=== PATIENT | female | born 1980 | race Caucasian/White ===

== ENCOUNTER 2020-06-08 10:43 | Outpatient (REF) | payer BC, SELFPAY ==
[2020-06-08 12:46] LABS: MANUAL DIFF FLAG NO
[2020-06-08 13:03] LABS: Basophils Percent Auto 0.5 % (0-2); Eosinophils Absolute Auto 0.1 X10*3/uL (0.0-0.4); Eosinophils Percent Auto 1.7 % (0-4); Hemoglobin 13.9 g/dl (12.0-16.0); Imm Gran Abs Auto 0.02 X10*3/uL (0.00-0.03); Imm Gran Pct Auto 0.3 % (0.0-0.4); Lymphocytes Absolute Auto 1.6 X10*3/uL (1.2-4.9); Lymphocytes Percent Auto 24.3 % (20-40); Mean Corpuscular HGB Conc 33.1 g/dl (31.0-35.0); Mean Corpuscular Hemoglobin 29.2 pg (27.0-33.0); Mean Corpuscular Volume 88.2 fL (80-98); Mean Platelet Volume 12.3 fL (9.4-12.3); Monocytes Absolute Auto 0.5 X10*3/uL (0.1-1.2); Monocytes Percent Auto 7.6 % (2-11); Neutrophils Absolute Auto 4.2 X10*3/uL (2.0-8.3); Neutrophils Percent Auto 65.6 % (45-73); Platelet Count 196 X10*3/uL (160-400); Red Blood Count 4.76 X10*6/uL (4.20-5.50); Red Cell Distribution Width 12.1 % (11.0-16.0); White Blood Count 6.4 X10*3/uL (4.8-10.8)
[2020-06-08 13:31] LABS: Alanine Aminotransferase 15 U/L (0-31); Albumin Level 4.4 g/dL (3.5-5.0); Alkaline Phosphatase 54 U/L (39-117); Anion Gap 13 (12-20); Aspartate Amino Transferase 17 U/L (5-31); Bilirubin Total 1.9 mg/dL (0.0-1.0); Blood Urea Nitrogen 11 mg/dL (9-16); Calcium 9.2 mg/dL (8.4-10.2); Carbon Dioxide 27 mmol/L (22-29); Chloride 102 mmol/L (96-108); Cholesterol 190 mg/dL; Estimated Glomerular Filt Rate > 60; Glucose Fasting 78 mg/dL (60-99); HDL Cholesterol 55 mg/dL; LDL Cholesterol Calculated 114 mg/dl; Potassium 4.5 mmol/L (3.3-5.1); Sodium 137 mmol/L (135-145); Total Protein 7.5 g/dL (6.5-8.0); Triglycerides 108 mg/dL
== END 2020-06-08 10:44 | disposition home or self-care (01) ==
LOC: HO.MANLDS 10:43
PROVIDERS: PCP Internal Medicine; Visit Provider Physician Assistant
DX: Z00.00 Encounter for general adult medical examination without abnormal findings (principal); Z13.6 Encounter for screening for cardiovascular disorders
CPT/HCPCS: 36415; 80053; 80061; 85025

== ENCOUNTER 2024-06-27 14:39 | Outpatient (REF) | payer BC, SELFPAY ==
--- OUTSIDE RECORDS SUMMARY | 2024-06-27 17:31 | XMS_ITS | Data Portability ---
Author Organization [facility] Home Service Address [address] [place] [address] Assessment No assessment recorded. Plan of Treatment Reminders Order Date Submit Date Provider Last Modified By Organization Details Last Modified Time Details Appointments FOLLOW UP 15 2024 02:15P HANNAH FLOWERS Not available Not available Not available ANNUAL EXAM 2024 10:00A HANNAH FLOWERS Not available Not available Not available Lab hemoglobi n A1c, QN, blood 2024 025 [facility], [address] [place] [address], [id number], 06/27/2024 14:38:09 CMP, serum or plasma 2024 025 [facility], [address] [place] [address], [id number], 06/27/2024 14:38:09 TSH + free T4, serum 2024 025 [facility], [address] [place] [address], [id number], 06/27/2024 14:34:01 lipid panel, blood 2024 025 [facility], [address] [place] [address], [id number], 06/27/2024 14:33:37 CBC w/ auto diff 2024 025 [facility], [address] [place] [address], [place], [address], 06/27/2024 14:33:37 lipid panel, blood 2020 021 [facility], [address] [place] [address], [address], [place], [address], 06/11/2020 11:32:44 CMP, serum or plasma 2020 021 [facility], [address] [place] [address], [address], [place], [address], 06/11/2020 11:32:44 CBC w/ auto diff 2020 021 [facility], [address] [place] [address], [address], [place], [address], 06/11/2020 11:32:44 vitamin D, 25-hydrox y, total, serum 2019 020 [facility], [address] [place] [address], [address], [place], [address], 04/05/2019 08:32:52 vitamin B12 + folate, serum or blood 2019 020 [facility], [address] [place] [address], [address], [place], [address], 04/05/2019 08:32:52 urinalysi s, dipstick [email or web address] [place] [address] Internal Medicine, [address] [place] [address], [address], [place], [address], 04/04/2019 10:58:02 CMP, serum or plasma 2019 020 [facility], [address] [place] [address], [address], [place], [address], 04/05/2019 08:32:52 lipids, total, serum 2019 020 [facility], [address] [facility], [address], [place], [address], 04/05/2019 08:32:52 CBC 2019 020 [facility], [address] [facility], [address], [place], [address], 04/05/2019 08:32:52 urinalysi s, dipstick [address] [facility] Internal [facility], [address] [place] [address], [address], [place], [address], 07/20/2017 15:29:50 Referral None recorded. Procedures None recorded. Surgeries None recorded. Imaging US, abdomen - upper R and L quadrant 2020 021 [email or web address] Not available 06/21/2020 08:20:08 Medication Orders None recorded. Patient TargetsNo targets recorded. Patient Instructions Encounter Date Encounter Id Patient Instructions Last Modified By Organization Details Last Modified Time 07/20/2017 [id number] pulse oximetry* Not availabl e 07/20/2017 15:29:50 04/04/2019 [id number] peak flow* Not available 10:58:03 pulse oximetry* Not available 04/04/2019 10:58:02 controlling your asthma: care instructions Not available 04/04/2019 10:58:02 learning about asthma Not available 04/04/2019 10:58:03 Reason for Referral None Reported. Results Created Date Observation Date Name Description Value Unit Range Abnormal Flag Note LastModifiedBy Organization Detail LastModifiedTime 07/21/19 18 07/20/2017 urina lysis , dipst ick Leukocytes Negati ve Not Available [facility] Internal [facility] [address] [facility] [address], [place], [address], 07/20/2017 15:10:19 07/21/19 18 07/20/2017 urina lysis , dipst ick Nitrite negati ve Not Available [facility] [address] [facility] [address], [place], [address], 07/20/2017 15:10:19 07/21/19 18 07/20/2017 urina lysis , dipst ick Urobilinogen .2 Not Available [facility] [address] [facility] [address], [place], [address], 07/20/2017 15:10:19 07/21/19 18 07/20/2017 urina lysis , dipst ick Protein Negati ve Not Available [facility] [address] [facility] [address], [place], [address], 07/20/2017 15:10:19 07/21/19 18 07/20/2017 urina lysis , dipst ick pH 7.5 Not Available [address], [place], [address], 07/20/2017 15:10:19 07/21/19 18 07/20/2017 urina lysis , dipst ick Blood Negati ve Not Available [address], [place], [address], 07/20/2017 15:10:19 07/21/19 18 07/20/2017 urina lysis , dipst ick Specific Hyrum 1.020 Not Available [address], [place], [address], 07/20/2017 15:10:19 07/21/19 18 07/20/2017 urina lysis , dipst ick Ketone Negati ve Not Available [address], [place], [address], 07/20/2017 15:10:19 07/21/19 18 07/20/2017 urina lysis , dipst ick Bilirubin Negati ve Not Available [address], [place], [address], 07/20/2017 15:10:19 07/21/19 18 07/20/2017 urina lysis , dipst ick Glucose Negati ve Not Available [facility] Internal [address], [place], [address], 07/20/2017 15:10:19 07/21/19 18 07/20/2017 urina lysis , dipst ick Appearance Clear Not Available [facility] Medicine [address] [place] [address] D, [place], [address], 07/20/2017 15:10:19 07/21/19 18 07/20/2017 urina lysis , dipst ick Color Yellow Not Available [facility] Internal [address], [place], [address], 07/20/2017 15:10:19 07/21/19 18 07/20/2017 pulse oxime try* Result 99 Not Available [facility] Internal [address], [place], [address], 07/20/2017 15:09:58 04/04/19 20 04/04/2019 peak flow* Test 1 340 Not Available [facility] Internal [address], [place], [address], 04/04/2019 10:41:23 04/04/19 20 04/04/2019 peak flow* Test 2 330 Not Available [facility] Medicine [address] [place] [address], [place], [address], 04/04/2019 10:41:23 04/04/19 20 04/04/2019 peak flow* Test 3 340 Not Available [facility] Internal [address], [place], [address], 04/04/2019 10:41:23 04/04/19 20 04/04/2019 pulse oxime try* Result 99 Not Available [facility] Internal [address], [place], [address], 04/04/2019 10:41:33 04/04/19 20 04/04/2019 urina lysis , dipst ick Leukocytes Negati ve Not Available [facility] Internal [facility] [address] [facility] [address], [place], [address], 04/04/2019 10:38:28 04/04/19 20 04/04/2019 urina lysis , dipst ick Nitrite negati ve Not Available [facility] [address] [facility] [address], [place], [address], 04/04/2019 10:38:28 04/04/19 20 04/04/2019 urina lysis , dipst ick Urobilinogen .2 Not Available [facility] [address] [facility] [address], [place], [address], 04/04/2019 10:38:28 04/04/19 20 04/04/2019 urina lysis , dipst ick Protein Negati ve Not Available [facility] [address] [facility] [address], [place], [address], 04/04/2019 10:38:28 04/04/19 20 04/04/2019 urina lysis , dipst ick pH 6.0 Not Available [facility] [address] [facility] [address], [place], [address], 04/04/2019 10:38:28 04/04/19 20 04/04/2019 urina lysis , dipst ick Blood Negati ve Not Available [facility] Internal [facility] [address] [facility] [address], [place], [address], 04/04/2019 10:38:28 04/04/19 20 04/04/2019 urina lysis , dipst ick Specific Hyrum 1.025 Not Available [facility] Internal [facility] [address] [facility] [address], [place], [address], 04/04/2019 10:38:28 04/04/19 20 04/04/2019 urina lysis , dipst ick Ketone Negati ve Not Available [facility] Medicine [address] [facility] [address], [place], [address], 04/04/2019 10:38:28 04/04/19 20 04/04/2019 urina lysis , dipst ick Bilirubin Negati ve Not Available [facility] Medicine [address] [facility] [address], [place], [address], 04/04/2019 10:38:28 04/04/19 20 04/04/2019 urina lysis , dipst ick Glucose Negati ve Not Available [facility] Medicine [address] [facility] [address], [place], [address], 04/04/2019 10:38:28 04/04/19 20 04/04/2019 urina lysis , dipst ick Appearance Clear Not Available [facility] Medicine [address] [facility] [address], [place], [address], 04/04/2019 10:38:28 04/04/19 20 04/04/2019 urina lysis , dipst ick Color Yellow Not Available [facility] Medicine [address] [facility] [address], [place], [address], 04/04/2019 10:38:28 04/12/19 20 04/12/2019 US, anaid t No observ ation record ed. [email or web address] [facility] (Outpt Imaging) [address] [facility], [place], [address], 04/12/2019 15:21:02 06/22/1906/21/2020 US abdom en No observ ation record ed. [email or web address] [facility] (Scheduling Dept) [address] [facility], [place], [address], 06/22/2020 17:55:45 Result Notes None recorded. Problems Name Problem SNOMED Code Status Onset Date Resolution Date Notes Provider Name and Address Organization Details Recorded Time Multiple fibroade nomas of breast 884157176 Active 2019 sees ob, has had numerous, with h/o benign bx Not Available [facility] 3 17:42:31 Gestatio nal diabetes mellitus 86924838 Active 2024 HANNAH CROWLEY [address] [place], [address], [facility] 5 14:30:31 Asthma 744707048 Active 2017 childhood Not Available [facility] 3 17:42:31 Problem Notes None recorded. Procedures Surgical History Date Name Laterality Status Provider Name and Address Organization Details Recorded Time 03/23/19 18 Date of Last Pap Smear completed [facility] GRADY Kent [address] [place] [address], [address], [facility] 04/04/2019 11:01:43 03/23/19 15 delivery completed [facility] GRADY Kent [address] [place] [address], [address], [facility] 04/04/2019 11:01:30 03/23/19 13 delivery completed [facility] GRADY Kent [address] [place] [address], [address], [facility] 04/04/2019 11:01:27 03/23/19 11 delivery completed [facility] GRADY Kent [address] [place] [address], [address], [facility] 04/04/2019 11:01:22 Imaging Results Imaging Date Name Status LastModified by Organiz ation Details LastModified Time 04/12/2019 US, breast completed [email or web address] [facility] (Outpt Imaging) [address] [place], [address], 04/12/2019 15:21:02 06/21/2020 US, abdomen completed [email or web address] Josh Oliveira [facility] (Scheduling Dept) [address] [place], [address], 06/22/2020 17:55:45 Procedure Notes None recorded. Medical Equipment None Reported. Allergies No known drug allergies Medications Name Sig Start Date Stop Date Status Note LastModified by Organization Details LastModified Time penicillin V potassium 500 mg tablet 04/04 completed Not Available Not Available Not Available oseltamivir 75 mg capsule 04/04 completed Not Available Not Available Not Available Kariva (28) 0.15 mg-0.02 mg (21)/0.01 mg (5) tablet 04/04 completed Not Available Not Available Not Available Afluria Qd (36 mos up)(PF)60 mcg (15 mcg x4)/0.5 mL IM syringe PHARMACY ADMINISTE RED 06/08 completed Not Available Not Available Not Available Vitals Date Recorded Body height Body mass index (BMI) Body weight Heart rate Oxygen saturation Oxygen saturation in Arterial blood by Pulse oximetry Systolic blood pressure Diastolic blood pressure Provider Name and Address Organization Details Last Updated DateTime 0 167.64 cm 22.6 kg/m2 24178.0 1 g 92 /min 99 % 99 % 110 mm[Hg] 78 mm[Hg] Sveta Almanzar [facility] 0 10:43:03 Date Recorded Body height Body mass index (BMI) Body weight Heart rate Oxygen saturation Oxygen saturation in Arterial blood by Pulse oximetry Systolic blood pressure Diastolic blood pressure Provider Name and Address Organization Details Last Updated DateTime 1 170.18 cm 23.3 kg/m2 96081.2 6 g 88 /min 99 % 99 % 116 mm[Hg] 70 mm[Hg] Desiree Oneal [facility] 1 10:10:40 Date Recorded Body height Body mass index (BMI) Body weight Heart rate Oxygen saturation Oxygen saturation in Arterial blood by Pulse oximetry Systolic blood pressure Diastolic blood pressure Provider Name and Address Organization Details Last Updated DateTime 5 170.18 cm 24.9 kg/m2 82478.5 5 g 83 /min 99 % 99 % 118 mm[Hg] 74 mm[Hg] Yudith South [facility] 5 14:27:52 Date Recorded Body weight Body mass index (BMI) Body height Heart rate Oxygen saturation Oxygen saturation in Arterial blood by Pulse oximetry Systolic blood pressure Diastolic blood pressure Provider Name and Address Organization Details Last Updated DateTime 8 14891.3 2 g 23.2 kg/m2 166.37 cm 92 /min 99 % 99 % 110 mm[Hg] 72 mm[Hg] [facility] 8 15:09:08 Social History Question Answer Notes LastModified by Organizat ion Details LastModified Time Tobacco Smoking Status Never Smoker Not Available [facility] 01/24/2020 03:36:24 Do You Or Have You Ever Used E-cigarettes Or Vape? Never Used Electronic Cigarettes [email or web address] Information not available 06/08/2020 What Was The Date Of Your Most Recent Tobacco Screening? 06/27/2024 [email or web address] Information not available 06/27/2024 Do You Or Have You Ever Used Smokeless Tobacco? Never Used Smokeless Tobacco [email or web address] Information not available 06/08/2020 How Much Tobacco Do You Smoke? No [id number] Information not available 01/24/2020 How Many Years Have You Smoked Tobacco? 0 [id number] Information not available 01/24/2020 Sex: Unknown Functional Status None recorded. Mental Status None recorded. Family History Relationship Description Onset Age of this Age Resolved Age Notes LastModified by Organization Details LastModified Time Father Myocardial infarction 61 Not available 03/23 11:03:01 Medical History Condition Response Coronary Artery Disease N Gout N Other N Kidney Stones N Blood Diseases N Blood Transfusion N Breast Cancer N COPD N Depression N Lung Disease N Defects or Inherited Disease N Anxiety Disorder N Muscle, Joint, or Bone Problems N Obesity N Vision or Eye Problems N Arthritis N Polyps N Infertility N Mental Disorder N Cancer N Varicosities N Stroke N Endometriosis N Bladder or Kidney Problems N High Cholesterol N Liver Disease N Headaches N Fibromyalgia N Kidney Disease N Allergies/Hayfever N Heart Problems N Hospitalizations N Thyroid Problems N GI Problems N Eating Disorder N Skin Problems N Anemia N MRSA exposure N Constipation N Mental Illness N Diabetes N Ovarian Cancer N Seizures/Epilepsy N Tuberculosis N Congestive Heart Failure (CHF) N Eczema N Abuse/Domestic Violence N Diverticulitis N Asthma N Reflux/GERD N Hepatitis N Heart Disease N Pulmonary Embolism N Hypertension N Chicken Pox N Autism Spectrum Disorder (ASD) N Osteoporosis N Gynecological History Statement/Question Response Abnormal Pap N Date of Last Pap Smear 03/23/2017 Age at Menarche 14 Obstetrics History GPAL:G 4 P 3 0 1 3 Type Value Full Term 3 Spontaneous 1 Living 3 Total 4 Immunizations Vaccine Type Date Status Note Provider Suraj coy and Address Organization Details Recorded Time Tdap 5 completed Not Available [facility] 03/28/2022 17:42:31 Influenza, split virus, quadrivalent, preservative 9 completed Not Available [facility] 03/28/2022 17:42:31 Past Encounters Encounter ID Performer Location Encounter Start Date Encounter Closed Date Diagnosis/Indication Diagnosis SNOMED-CT Code Diagnosis ICD10 Code Diagnosis Note [id number] June [facility] Medicine [address] [facility],[place] [address] 07/20/2017 14:47:40 07/20/2017 15:44:18 Adult health examination 264776123 Z00.00 Asthma 795824400 J45.90 9 asymptomat ic x years doesn't have rescue inhaler, never bothers unless sick [id number] June [facility] Internal Medicine [address] [facility] [address] [place] [employer] [place] [address] 04/04/2019 10:30:51 04/04/2019 11:13:02 Adult health examination 698480550 Z00.00 Active or passive immunization 443549951 Z23 Asthma 765570477 J45.90 9 asymptomat ic x years doesn't have rescue inhaler, never bothers unless sick Vitamin D deficiency 347 04714 E55.9 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 [id number] [facility] CR[facility] [address] [facility],[employer] [place] [address] 06/08/2020 10:05:49 06/08/2020 10:33:49 Active or passive immunization 961936646 Z23 nothing due Adult heal th examination 828082718 Z00.00 BP excellent Hernia of anterior abdominal wall 311462034 K43.9 will fu with US abdomen, based on location, possible CT Screening for cardiovascular system disease 974841874 Z13.6 will fu w BW [id number] HANNAH CROWLEY [facility] [address] [facility] [address],[place] [address] 06/27/2024 14:14:36 06/27/2024 14:42:57 Gestational diabetes mellitus 72274602 O24.410 will set up with lab work Screening for cardiovascular system disease 825817915 Z13.6 will f/u w BW Thyroid di sorder screening 652909485 Z13.29 will set up with lab work to screen for thyroid Health Concerns Section Related Observation LastModified by Organization Detai ls LastModified Time None Recorded Concern Status LastModified by Organization Details LastModified Time None Recorded Advance Directives Directive None Recorded Payers Encounter Date Sequence Insurance Name Policy Number Policy Leal Covered Member ID Leal Member ID Guarantor Name 07/20/2017 1 [employer] [id number] Enzo Frye [id number] 20 Jennifer Melva 04/04/2019 1 [employer] [id number] Enzo Frye [id number] 20 Jennifer Melva 06/08/2020 1 [employer] [id number] Enzo Frye [id number] 20 Jennifer Dasilvaoghue 06/27/2024 1 [employer] (EPO) Jennifer Frye [id number] Jennifer Dasilvaoghue Notes Date Note Type Note Provider Name a il Address Organization Details Recorded Time 8 text/html Annual WellnessReported bypatient.Diet and Nutrition:healthy diet Fracture Risk:no history of fractures; no recent explained fracture; no sudden unexplained fractures; no previous musculoskeletal injuries Physical Activity:exercises on a regular basis; good physical condition Additional Lifestyle Factors:no tobacco use; drinks alcohol (mild-moderate); 1-2/week Depression Risk:never feels sad, empty, or tearful; no loss of interest in activities; no significant changes in weight; no sleep disturbances or insomnia; no agitation; no loss of energy; no feelings of worthlessness or guilt; no thoughts of suicide; no history of depression; no history of mood disorders Hearing:no loss of hearing Vision:no vision problemsNotes:12 system ROS negative except where noted above- denies: chest pain, palp, sob, ankle swelling, visual problems, numbness or tingling extremities, abdominal pain, bowel/bladder issues, sexual dysfunction, abnormal bleeding, sx of sinus/respiratory infection , headaches, dizziness/lightheaded ness, rashes, or nail changes. [facility] YoliLAURANATA [address] [place] [address], [address], [facility] 07/20/2017 15:36:51 0 text/html Annual WellnessReported bypatient.Diet and Nutrition:healthy diet Fracture Risk:no history of fractures Physical Activity:exercises on a regular basis Additional Lifestyle Factors:no tobacco use; drinks alcohol (mild-moderate) Depression Risk:never feels sad, empty, or tearful; no loss of interest in activities; no significant changes in weight; no sleep disturbances or insomnia; no agitation; no loss of energy; no feelings of worthlessness or guilt; no thoughts of suicide; no history of depression; no history of mood disorders Hearing:no loss of hearing Vision:no vision problems GRADY Gonzalez [address] [place] [address], [phone] [place] [address] Internal Medicine 04/04/2019 11:10:13 1 text/html Annual WellnessReported bypatient.Diet and Nutrition:healthy diet; discussed vitamin and supplement use; discussed portion control; discussed maintaining calcium balance; discussed diet improvement; vegetarian Fracture Risk:no history of fractures; no recent explained fracture; no sudden unexplained fractures; no previous musculoskeletal injuries Physical Activity:exercises on a regular basis; discussed weightbearing activities; discussed exercise habits; runs three to four times per week Additional Lifestyle Factors:no tobacco use; drinks alcohol (mild-moderate) Depression Risk:never feels sad, empty, or tearful; no loss of interest in activities; no significant changes in weight; no sleep disturbances or insomnia; no agitation; no loss of energy; no feelings of worthlessness or guilt; no thoughts of suicide; no history of depression; no history of mood disorders Hearing:no loss of hearing Vision:no vision problems HANNAH CROWLEY [address] [place] [address], [address], [facility] 06/08/2020 10:25:41 5 text/html f/u lab work patient had gestational diabetes about a year ago with her last , fourth childrecommend by OB to f/u with PCP for screening after the fact will set up with lab workno symptoms per patientfeels good overalldenies thirst, urination or fatigue needs routine lab work screening as well prior to sept appt otherwise no questions HANNAH CROWLEY [address] [place] [address], [place], [address], [place] [facility] 06/27/2024 14:37:09 OBGyn Episode No OBEpisode recorded.
--- OUTSIDE RECORDS SUMMARY | 2024-06-27 17:32 | XMS_ITS | Continuity of Care Document ---
Author Organization [facility], [facility] Address [address] [place] [address] [place] [address] Assessment No assessment recorded. Plan of Treatment Reminders Order Date Submit Date Provider Last Modified By Organization Details Last Modified Time Details Appointments FOLLOW UP 15 2024 02:15P HANNAH FLOWERS Not available Not available Not available ANNUAL EXAM 2024 10:00A HANNAH FLOWERS Not available Not available Not available Lab hemoglobi n A1c, QN, blood 2024 025 [facility], [address] [place] [address], [id number], 06/27/2024 14:38:09 CMP, serum or plasma 2024 025 [facility], [address] [place] [address], [id number], 06/27/2024 14:38:09 TSH + free T4, serum 2024 025 [facility], [address] [place] [address], [id number], 06/27/2024 14:34:01 lipid panel, blood 2024 025 [facility], [address] [place] [address], [id number], 06/27/2024 14:33:37 CBC w/ auto diff 2024 025 [facility], [address] [place] [address], [place], [id number], 06/27/2024 14:33:37 Referral None recorded. Procedures None recorded. Surgeries None recorded. Imaging None recorded. Medication Orders None recorded. Patient TargetsNo targets recorded. Patient InstructionsNo instructions recorded. Reason for Referral None Reported. Problems Name Problem SNOMED Code Status Onset Date Resolution Date Notes Provider Name and Address Organization Details Recorded Time Multiple fibroade nomas of breast 771672806 Active 2019 sees ob, has had numerous, with h/o benign bx Not Available [facility] 3 17:42:31 Gestatio nal diabetes mellitus 78539755 Active 2024 HANNAH CROWLEY [address] [place], [address], [facility] 5 14:30:31 Asthma 645263075 Active 2017 childhood Not Available [facility] 3 17:42:31 Problem Notes None recorded. Procedures Surgical History Date Name Laterality Status Provider Name and Address Organization Details Recorded Time 03/23/19 18 Date of Last Pap Smear completed [address], [address], [facility] 04/04/2019 11:01:43 03/23/19 15 delivery completed [address], [address], [facility] 04/04/2019 11:01:30 03/23/19 13 delivery completed [address], [address], [facility] 04/04/2019 11:01:27 03/23/19 11 delivery completed [address], [address], [facility] 04/04/2019 11:01:22 Imaging Results None recorded. Procedure Notes None recorded. Medical Equipment None [...] Available Not Available Not Available Afluria Qd 2019- (36 mos up)(PF)60 mcg (15 mcg x4)/0.5 [...] Updated DateTime 5 170.18 cm 24.9 kg/m2 25475.5 5 g 83 /min 99 % 99 % 118 mm[Hg] 74 mm[Hg] [facility] 5 14:27:52 Social History Question Answer Notes LastModified by Organizat ion Details LastModified Time Tobacco Smoking Status Never Smoker Not Available [facility] 01/24/2020 03:36:24 Do You Or Have You Ever Used E-cigarettes Or Vape? Never Used Electronic Cigarettes [email or web address] Information not available 06/08/2020 What Was The Date Of Your Most Recent Tobacco Screening? 06/27/2024 [email or web address] Information not available 06/27/2024 Do You Or Have You Ever Used Smokeless Tobacco? Never Used Smokeless Tobacco [email or web address] Information not available 06/08/2020 How Much Tobacco Do You Smoke? No [id number] Information not available 01/24/2020 How Many Years Have You Smoked Tobacco? 0 [id number] Information not available 01/24/2020 Sex: Unknown Functional Status None recorded. Mental Status None recorded. Family History Relationship Description Onset Age of this Age Resolved Age Notes LastModified by Organization Details LastModified Time Father Myocardial infarction 61 Not available 03/23 11:03:01 Medical History Condition Response Coronary Artery Disease N Other N Gout N Kidney Stones N Blood Diseases N Breast Cancer N Blood Transfusion N COPD N Depression N Lung Disease N Defects or Inherited Disease N Anxiety Disorder N Muscle, Joint, or Bone Problems N Obesity N Vision or Eye Problems N Arthritis N Infertility N Polyps N Mental Disorder N Cancer N Stroke N Varicosities N Endometriosis N Bladder or Kidney Problems N High Cholesterol N Liver Disease N Fibromyalgia N Headaches N Kidney Disease N Allergies/Hayfever N Heart Problems N Hospitalizations N Thyroid Problems N GI Problems N Skin Problems N Eating Disorder N Anemia N MRSA exposure N Constipation N Mental Illness N Ovarian Cancer N Diabetes N Seizures/Epilepsy N Tuberculosis N Congestive Heart Failure (CHF) N Eczema N Diverticulitis N Abuse/Domestic Violence N Asthma N Reflux/GERD N Hepatitis N Heart Disease N Pulmonary Embolism N Hypertension N Osteoporosis N Chicken Pox N Autism Spectrum Disorder (ASD) N Gynecological History Statement/Question Response Abnormal Pap N Date of Last Pap Smear 03/23/2017 Age at Menarche 14 Obstetrics History GPAL:G 4 P 3 0 1 3 Type Value Full Term 3 Spontaneous 1 Living 3 Total 4 Immunizations Vaccine Type Date Status Note Provider Nam e and Address Organization Details Recorded Time Tdap 5 completed Not Available [facility] 03/28/2022 17:42:31 Influenza, split virus, quadrivalent, preservative 9 completed Not Available [facility] 03/28/2022 17:42:31 Past Encounters Encounter ID Performer Location Encounter Start Date Encounter Closed Date Diagnosis/Indication Diagnosis SNOMED-CT Code Diagnosis ICD10 Code Diagnosis Note [id number] HANNAH CROWLEY [facility] [address],[place] [address] 06/27/2024 14:14:36 06/27/2024 14:42:57 Gestational diabetes mellitus 57700025 O24.410 will set up with lab work Screening for cardiovascular system disease 361118191 Z13.6 will f/u w BW Thyroid di sorder screening 222423890 Z13.29 will set up with lab work to screen for thyroid Health Concerns Section Related Observation LastModified by Organization Detai ls LastModified Time None Recorded Concern Status LastModified by Organization Details LastModified Time None Recorded Payers Encounter Date Sequence Insurance Name Policy Number Policy Leal Covered Member ID Leal Member ID Guarantor Name 06/27/2024 1 [employer] (EPO) Jennifer Frye [id number] Jennifer Frye Notes Date Note Type Note Provider Name a nd Address Organization Details Recorded Time 06/27/2024 text/html f/u lab work patient had gestational diabetes about a year ago with her last , fourth childrecommend by OB to f/u with PCP for screening after the fact will set up with lab workno symptoms per patientfeels good overalldenies thirst, urination or fatigue needs routine lab work screening as well prior to nov appt otherwise no questions HANNAH CROWLEY [address] [place] [address], [place], [address], [facility] 06/27/2024 14:37:09 OBGyn Episode No OBEpisode recorded.
[2024-06-27 17:56] LABS: Estimated Average Glucose 103 mg/dL; Hemoglobin A1C 109.6087 umol/L; Hemoglobin A1c % 5.2 % (<6.0); Total Hemoglobin (HGBA1C) 3340.9207 umol/L
[2024-06-27 19:00] LABS: Alanine Aminotransferase 17 U/L (0-31); Albumin Level 4.2 g/dL (3.5-5.0); Alkaline Phosphatase 52 U/L (39-117); Anion Gap 12 (12-20); Aspartate Amino Transferase 18 U/L (5-31); Bilirubin Total 0.8 mg/dL (0.0-1.0); Blood Urea Nitrogen 21 mg/dL (9-16); Carbon Dioxide 24 mmol/L (22-29); Chloride 108 mmol/L (96-108); Estimated Glomerular Filt Rate > 60; Glucose Random 99 mg/dL (60-115); Potassium 3.4 mmol/L (3.3-5.1); Sodium 141 mmol/L (135-145); Total Protein 7.3 g/dL (6.5-8.0)
== END 2024-06-27 14:40 | disposition home or self-care (01) ==
LOC: HO.MANLDS 14:39
PROVIDERS: Visit Provider Physician Assistant
DX: O24.410 Gestational diabetes mellitus in pregnancy, diet controlled (principal)
CPT/HCPCS: 36415; 80053; 83036